=== PATIENT | male | born 1995 | race Two or more races ===

== ENCOUNTER 2018-07-10 13:36 | Inpatient (IN) | payer OTHER ==
[2018-07-10 14:31] VITALS: BMI 23.5
--- NOTE | 2018-07-10 15:25 | HP ---
COWS - Scale Resting Pulse: 1= MD 81-100 Sweatin= Chills/Flushing Restless Observation: 1= Difficult to Sit Still Pupil Size: 2= Moderately Dilated Bone or Joint Aches: 2= Severe Diffuse Aches Runny Nose/ Eye Tearin= Nasal Congestion GI Upset > 30mins: 3= Vomiting/Diarrhea Tremor Observation: 1= Tremor [place], Not Seen Yawning Observation: 0= None Anxiety or Irritability: 4=Extreme Anxiety Goose Flesh Skin: 0=Smooth Skin COWS Score: 16 CIWA Score - Admission Criteria OASAS Guidelines: Admission for Medically Managed Detox: Requires at least one of the followin. CIWA greater than 12 2. Seizures within the past 24 hours 3. Delirium tremens within the past 24 hours 4. Hallucinations within the past 24 hours 5. Acute intervention needed for co occurring medical disorder 6. Acute intervention needed for co occurring psychiatric disorder 7. Severe withdrawal that cannot be handled at a lower level of care (continued vomiting, continued diarrhea, abnormal vital signs) requiring intravenous medication and/or fluids 8. Admission ROS [facility] - [facility] Chief Complaint: " my family told me to come to detox" Allergies/Adverse Reactions: Allergies Allergy/AdvReac Type Severity Reaction Status Date / Time No Known Allergies Allergy Verified 07/10/18 14:22 History of Present Illness: 23 yo male with hx of nicotine and heroin (nasal) dependence is here seeking detox d/t withdrawal symptoms, reports first time seeking treatment for NANCY. Patient report three year hx of heroin use, using 8-9 bags per day, last use two days ago. Denies medical and psych hx. Denies hx of seizures, overdose or blackouts. Patient is interested in attending rehab upon completing detox. Exam Limitations: No Limitations - Ebola screening Have you traveled outside of the country in the last 21 days: No Have you had contact with anyone from an Ebola affected area: No Do you have a fever: No - Review of Systems Constitutional: Chills, Diaphoresis, Loss of Appetite, Changes in sleep, Unintentional Wgt. Loss EENT: reports: Nose Congestion Respiratory: reports: No Symptoms reported Cardiac: reports: No Symptoms Reported GI: reports: Diarrhea, Nausea, Poor Appetite, Poor Fluid Intake, Vomiting, Abdominal cramping : reports: No Symptoms Reported Musculoskeletal: reports: Back Pain, Joint Pain Integumentary: reports: No Symptoms Reported Neuro: reports: Headache (01/01) Endocrine: reports: Excessive Sweating, Increased Thirst Hematology: reports: No Symptoms Reported Psychiatric: reports: Orientated x3, Anxious Other Systems: Reviewed and Negative Patient History - Patient Medical History Hx Anemia: No Hx Asthma: No Hx Chronic Obstructive Pulmonary Disease (COPD): No Hx Cancer: No Hx Cardiac Disorders: No Hx Congestive Heart Failure: No Hx Hypertension: No Hx Hypercholesterolemia: No Hx Pacemaker: No HX Cerebrovascular Accident: No Hx Seizures: No Hx Dementia: No Hx Diabetes: No Hx Gastrointestinal Disorders: No Hx Liver Disease: No Hx Genitourinary Disorders: No Hx Sexually Transmitted Disorders: No Hx Renal Disease (ESRD): No Hx Thyroid Disease: No Hx Human Immunodeficiency Virus (HIV): No Hx Hepatitis C: No Hx Depression: No Hx Suicide Attempt: No Hx Bipolar Disorder: No Hx Schizophrenia: No - Patient Surgical History Past Surgical History: No - PPD History Previous Implant?: No Documented Results: Negative w/o proof PPD to be Administered?: No - Smoking Cessation Smoking history: Current every day smoker Have you smoked in the past 12 months: Yes Aproximately how many cigarettes per day: 20 Hx Chewing Tobacco Use: No Initiated information on smoking cessation: Yes 'Breaking Loose' booklet given: 07/10/18 - Substance & Tx. History Hx Alcohol Use: No Hx Substance Use: Yes Substance Use Type: Heroin Hx Substance Use Treatment: No - Substances abused Heroin Substance route: Inhalation Frequency: Daily Amount used: $100 (8-9 bags) Age of first use: 20 Date of last use: 07/08/18 Family Disease History - Family Disease History Family History: Denies Admission Physical Exam [facility] - Vital Signs Vital Signs: Vital Signs - 24 hr 07/10/18 14:25 Temperature 99.8 F H Pulse Rate 93 H Respiratory 18 Rate Blood Pressure 120/80 - Physical General Appearance: Yes: Appropriately Dressed, Moderate Distress, Thin, Sweating, Anxious HEENTM: Yes: EOMI, Hearing grossly Normal, Normal ENT Inspection, Normocephalic , Normal Voice, MARGARET (pupils =6mm bl), Pharynx Normal, Other Respiratory: Yes: Chest Non-Tender, Lungs Clear, Normal Breath Sounds, No Respiratory Distress, No Accessory Muscle Use Neck: Yes: Within Normal Limits Breast: Yes: Breast Exam Deferred Cardiology: Yes: Regular Rhythm, Regular Rate Abdominal: Yes: Normal Bowel Sounds, Non Tender, Flat, Soft Genitourinary: Yes: Within Normal Limits Back: Yes: Normal Inspection Musculoskeletal: Yes: full range of Motion, Gait Steady, Pelvis Stable, Back pain Extremities: Yes: Normal Capillary Refill, Normal Inspection, Normal Range of Motion, Non-Tender Neurological: Yes: dba II-XII NML intact, Fully Oriented, Alert, Motor Strength 5/5, Depressed Affect Integumentary: Yes: Normal Color, Warm, Diaphoresis Lymphatic: Yes: Within Normal Limits - Diagnostic (1) Opioid dependence with withdrawal Current Visit: Yes Status: Acute (2) Nicotine dependence Current Visit: Yes Status: Acute Qualifiers: Nicotine product type: cigarettes (3) Nausea and vomiting Current Visit: Yes Status: Acute Qualifiers: Vomiting Intractability: unspecified Cleared for Admission S - Detox or Rehab [facility] Level of Care: Medically Managed Detox Regimen/Protocol: Methadone Breathalyzer - Breathalyzer Breathalyzer: 0 Urine Drug Screen - Test Device Lot number: [id number] Expiration date: 06/22/19 - Control Is test valid?: Yes - Results Drug screen NEGATIVE: No Urine drug screen results: MOP-Opiates Inpatient Rehab Admission - Rehab Decision to Admit Inpatient rehab admission?: No
[2018-07-10] MEDS ORDERED: MAG HYDROX/AL HYDROX/SIMETH 30 ML UNIT-DOSE CUP PO PRN (15:28)
[2018-07-10] MEDS ORDERED: MAGNESIUM CITRATE 300 ML BOTTLE PO PRN (15:28)
[2018-07-10] MEDS ORDERED: MELATONIN 5 MG TABLETS PO PRN (15:28)
[2018-07-10] MEDS ORDERED: IBUPROFEN 400 MG TABLET (FP) PO PRN (15:28)
[2018-07-10] MEDS ORDERED: METHOCARBAMOL 500 MG TABLET PO PRN (15:28)
[2018-07-10] MEDS ORDERED: MENTHOL/PHENOL 1 EACH UD MM PRN (15:28)
[2018-07-10] MEDS ORDERED: NICOTINE POLACRILEX 2 MG GUM BUC PRN (15:28)
[2018-07-10] MEDS ORDERED: BISMUTH SUBSALICYLATE 524 MG/30 ML UD PO PRN (15:28)
[2018-07-10] MEDS ORDERED: ACETAMINOPHEN 325 MG TABLET (FP) PO PRN ×2 (15:28)
[2018-07-10] MEDS ORDERED: ONDANSETRON *ODT* 4 MG TABLET SL PRN (15:28)
[2018-07-10] MEDS ORDERED: MAGNESIUM HYDROX 2400MG/30ML ORAL SUSPENSION 30 ML CUP PO PRN (15:28)
[2018-07-10] MEDS ORDERED: cloNIDine HCL 0.1 MG TABLET PO PRN (15:35)
[2018-07-10] MEDS ORDERED: METHADONE HCL 10 MG TABLET (FOR DETOX USE ONLY) PO ONE ×2 (16:30→23:00)
[2018-07-10] MEDS: DICYCLOMINE HCL 10 MG CAPSULE PO PRN (17:07)
[2018-07-10 20:19] LABS: EPI CELLS 1.3 /HPF (0-5/HPF); PH,URINE 6.5 (5.0-8.0); URINE APPEARANCE CLEAR; URINE BACTERIA 4.6 /hpf (NEGATIVE); URINE BILIRUBIN NEGATIVE (NEGATIVE); URINE CASTS 6 /lpf (0-8); URINE COLOR DK YELLOW; URINE GLUCOSE (UA) NEGATIVE (NEGATIVE); URINE KETONE 2+ (NEGATIVE); URINE LEUK ESTERASE TRACE (NEGATIVE); URINE NITRITE NEGATIVE (NEGATIVE); URINE PROTEIN TRACE (NEGATIVE); URINE RBC 2 /hpf (0-4); URINE WBC 5 /hpf (0-5)
[2018-07-10] MEDS: THIAMINE HCL 100 MG TABLET (FP) PO SCH (22:27)
[2018-07-11] MEDS: DICYCLOMINE HCL 10 MG CAPSULE PO PRN (07:38)
[2018-07-11] MEDS ORDERED: METHADONE HCL 10 MG TABLET (FOR DETOX USE ONLY) PO ONE ×2 (10:00→10:45)
[2018-07-11] MEDS: PRENATAL VITAMINS W/ FOLIC ACID TABLET (FP) PO SCH (10:24)
[2018-07-11] MEDS: NICOTINE 21 MG/24 HOURS TOPICAL PATCH TD SCH (10:25)
[2018-07-11] MEDS ORDERED: cloNIDine HCL 0.1 MG TABLET PO PRN (10:28)
[2018-07-11] MEDS ORDERED: METHADONE HCL 10 MG TABLET PO ONE (10:29)
[2018-07-11] MEDS ORDERED: hydrOXYzine PAMOATE 50 MG CAPSULE (FP) PO PRN (10:30)
--- NOTE | 2018-07-11 10:33 | PN ---
S COWS - Scale Resting Pulse: 2= [place] 101-120 Sweatin= Chills/Flushing Restless Observation: 1= Difficult to Sit Still Pupil Size: 1= Pupils >than Normal Bone or Joint Aches: 2= Severe Diffuse Aches Runny Nose/ Eye Tearin= Nasal Congestion GI Upset > 30mins: 3= Vomiting/Diarrhea Tremor Observation of Outstretched Hands: 1= Tremor [place], Not Seen Yawning Observation: 2= >3x During Session Anxiety or Irritability: 1=Feels Anxious/Irritable Goose Flesh Skin: 3=Piloerection COWS Score: 18 [facility] Progress Note (SOAP) Subjective: pt with nausea, vomiting, diarrhea, day #2 of admission. high COWS score O: Vital Signs - 24 hr 07/10/18 07/10/18 07/10/18 14:25 18:11 21:35 Temperature 99.8 F H 99.1 F 99.0 F Pulse Rate 93 H 106 H 81 Respiratory 18 18 16 Rate Blood Pressure 120/80 129/86 109/63 07/11/18 07/11/18 07/11/18 00:30 03:30 06:11 Temperature 97.1 F L Pulse Rate 79 Respiratory 18 18 16 Rate Blood Pressure 112/72 07/11/18 07/11/18 06:30 09:27 Temperature 98.6 F Pulse Rate 89 Respiratory 18 18 Rate Blood Pressure 116/81 Laboratory Tests 07/10/18 17:00 Urine Color Dk yellow Urine Appearance Clear Urine pH 6.5 Ur Specific [place] 1.032 Urine Protein Trace Urine Glucose (UA) Negative Urine Ketones 2+ H Urine Blood Negative Urine Nitrite Negative Urine Bilirubin Negative Urine Urobilinogen 1.0 Ur Leukocyte Esterase Trace Urine WBC (Auto) 5 Urine RBC (Auto) 2 Urine Casts (Auto) 6 U Epithel Cells (Auto) 1.3 Urine Bacteria (Auto) 4.6 a/p Heroin use- detox protocol, pt still in withdrawal- rec'd only 20mg of methadone since admission will give additional dose of methadone, prn valium, clonidine and vistaril pt to start methadone program at discharge- d/w pt and counselor
[2018-07-11] MEDS: diazePAM 5 MG TABLET PO PRN (10:55)
[2018-07-11 11:02] LABS: ALBUMIN 4.1 g/dl (3.4-5.0); ALK PHOS 65 U/L (45-117); ANION GAP 6 MMOL/L (8-16); BILIRUBIN,TOTAL 0.5 mg/dL (0.2-1); BLOOD UREA NITROGEN 13 mg/dL (7-18); CALCIUM 9.5 mg/dL (8.5-10.1); CHLORIDE 105 mmol/L (98-107); CO2 29 mmol/L (21-32); CREATININE 0.9 mg/dL (0.55-1.3); GLUCOSE,RANDOM 92 mg/dL (74-106); POTASSIUM 3.7 mmol/L (3.5-5.1); SGOT/AST 18 U/L (15-37); SGPT/ALT 23 U/L (13-61); SODIUM 140 mmol/L (136-145); TOT PROT 7.4 g/dl (6.4-8.2)
[2018-07-11 11:05] LABS: HEMATOCRIT 45.6 % (35.4-49); HEMOGLOBIN 15.2 GM/dL (11.7-16.9); MCH 29.5 pg (25.7-33.7); MCHC 33.4 g/dl (32.0-35.9); MEAN CELL VOLUME 88.3 fl (80-96); MEAN PLT VOLUME 9.2 fl (7.5-11.1); PLATELET COUNT 225 K/MM3 (134-434); RBC 5.16 M/mm3 (4.00-5.60); RDW 13.9 % (11.9-15.9); WHITE BLOOD COUNT 6.4 K/mm3 (4.0-10.0)
[2018-07-11] MEDS ORDERED: RANITIDINE HCL 150 MG TABLET (FP) PO ONE (14:55)
[2018-07-11] MEDS: THIAMINE HCL 100 MG TABLET (FP) PO SCH (22:23)
[2018-07-12] MEDS: NICOTINE 21 MG/24 HOURS TOPICAL PATCH TD SCH (09:38)
[2018-07-12] MEDS: diazePAM 5 MG TABLET PO PRN ×2 (09:39→22:34)
[2018-07-12] MEDS: PRENATAL VITAMINS W/ FOLIC ACID TABLET (FP) PO SCH (09:39)
[2018-07-12] MEDS ORDERED: METHADONE HCL 5 MG TABLET (FOR DETOX USE ONLY) PO ONE (10:00)
[2018-07-12] MEDS ORDERED: METHADONE HCL 10 MG TABLET (FOR DETOX USE ONLY) PO ONE (10:00)
--- NOTE | 2018-07-12 14:29 | EKG ---
Test Reason : Blood Pressure : / mmHG Vent. Rate : 100 BPM Atrial Rate : 100 BPM P-R Int : 132 ms QRS Dur : 086 ms QT Int : 346 ms P-R-T Axes : 066 084 054 degrees QTc Int : 446 ms NORMAL SINUS RHYTHM NORMAL ECG NO PREVIOUS ECGS AVAILABLE Confirmed by MD ARDEN, JANA ([id number]) on 07/12/2018 2:29:11 PM Referred By: Confirmed By:JANA HER MD
--- NOTE | 2018-07-12 15:33 | PN ---
BHS COWS - Scale Resting Pulse: 0= [place] 80 or Below Sweatin= Chills/Flushing Restless Observation: 0= Sits Still Pupil Size: 0= Normal to Room Light Bone or Joint Aches: 2= Severe Diffuse Aches Runny Nose/ Eye Tearin= None GI Upset > 30mins: 2= Nausea/Diarrhea Tremor Observation of Outstretched Hands: 0= None Yawning Observation: 1= 1-2x During Session Anxiety or Irritability: 2=Irritable/Anxious Goose Flesh Skin: 3=Piloerection COWS Score: 11 [facility] Progress Note (SOAP) Subjective: Nausea, Diarrhea, Anxious, Body Aches. Objective: PATIENT A & O X 3, OBSERVED AMBULATING ON UNIT UNASSISTED. IN NO ACUTE DISTRESS. 07/12/18 15:34 Vital Signs Temperature 98.1 F 07/12/18 13:16 Pulse Rate 78 07/12/18 13:16 Respiratory Rate 18 07/12/18 13:16 Blood Pressure 96/67 07/12/18 13:16 O2 Sat by Pulse Oximetry (%) Laboratory Tests 07/10/18 07/11/18 07/11/18 17:00 07:00 07:00 WBC 6.4 RBC 5.16 Hgb 15.2 Hct 45.6 MCV 88.3 MCH 29.5 MCHC 33.4 RDW 13.9 Plt Count 225 MPV 9.2 Sodium 140 Potassium 3.7 Chloride 105 Carbon Dioxide 29 Anion Gap 6 L BUN 13 Creatinine 0.9 Creat Clearance w eGFR 104.57 Random Glucose 92 Calcium 9.5 Total Bilirubin 0.5 AST 18 ALT 23 Alkaline Phosphatase 65 Total Protein 7.4 Albumin 4.1 Urine Color Dk yellow Urine Appearance Clear Urine pH 6.5 Ur Specific [place] 1.032 Urine Protein Trace Urine Glucose (UA) Negative Urine Ketones 2+ H Urine Blood Negative Urine Nitrite Negative Urine Bilirubin Negative Urine Urobilinogen 1.0 Ur Leukocyte Esterase Trace Urine WBC (Auto) 5 Urine RBC (Auto) 2 Urine Casts (Auto) 6 U Epithel Cells (Auto) 1.3 Urine Bacteria (Auto) 4.6 RPR Titer HIV 1&2 Antibody Screen HIV P24 Antigen 07/11/18 07/11/18 07:00 07:00 WBC RBC Hgb Hct MCV MCH MCHC RDW Plt Count MPV Sodium Potassium Chloride Carbon Dioxide Anion Gap BUN Creatinine Creat Clearance w eGFR Random Glucose Calcium Total Bilirubin AST ALT Alkaline Phosphatase Total Protein Albumin Urine Color Urine Appearance Urine pH Ur Specific [place] Urine Protein Urine Glucose (UA) Urine Ketones Urine Blood Urine Nitrite Urine Bilirubin Urine Urobilinogen Ur Leukocyte Esterase Urine WBC (Auto) Urine RBC (Auto) Urine Casts (Auto) U Epithel Cells (Auto) Urine Bacteria (Auto) RPR Titer Nonreactive HIV 1&2 Antibody Screen Negative HIV P24 Antigen Negative LABS NOTED. Assessment: 07/12/18 15:35 WITHDRAWAL SYMPTOMS. Plan: CONTINUE DETOX. INCREASE DAILY PO FLUID / WATER INTAKE.
[2018-07-12] MEDS: THIAMINE HCL 100 MG TABLET (FP) PO SCH (22:34)
[2018-07-13] MEDS ORDERED: METHADONE HCL 10 MG TABLET (FOR DETOX USE ONLY) PO ONE (10:00)
[2018-07-13] MEDS: diazePAM 5 MG TABLET PO PRN (10:15)
[2018-07-13] MEDS: PRENATAL VITAMINS W/ FOLIC ACID TABLET (FP) PO SCH (10:15)
[2018-07-13] MEDS: NICOTINE 21 MG/24 HOURS TOPICAL PATCH TD SCH (10:16)
--- NOTE | 2018-07-13 14:17 | PN ---
BHS COWS - Scale Resting Pulse: 0= MD 80 or Below Sweatin= Chills/Flushing Restless Observation: 1= Difficult to Sit Still Pupil Size: 0= Normal to Room Light Bone or Joint Aches: 1= Mild Discomfort Runny Nose/ Eye Tearin= Nasal Congestion GI Upset > 30mins: 1= Stomach Cramp Tremor Observation of Outstretched Hands: 1= Tremor [place], Not Seen Yawning Observation: 1= 1-2x During Session Anxiety or Irritability: 1=Feels Anxious/Irritable Goose Flesh Skin: 0=Smooth Skin COWS Score: 8 B[facility] Progress Note (SOAP) Subjective: feeling better social with peers in day room Objective: 07/13/18 15:38 Vital Signs Temperature 97.1 F L 07/13/18 13:22 Pulse Rate 76 07/13/18 13:22 Respiratory Rate 18 07/13/18 13:22 Blood Pressure 128/71 07/13/18 13:22 O2 Sat by Pulse Oximetry (%) Laboratory Last Values WBC 6.4 K/mm3 (4.0-10.0) 07/11/18 07:00 RBC 5.16 M/mm3 (4.00-5.60) 07/11/18 07:00 Hgb 15.2 GM/dL (11.7-16.9) 07/11/18 07:00 Hct 45.6 % (35.4-49) 07/11/18 07:00 MCV 88.3 fl (80-96) 07/11/18 07:00 MCH 29.5 pg (25.7-33.7) 07/11/18 07:00 MCHC 33.4 g/dl (32.0-35.9) 07/11/18 07:00 RDW 13.9 % (11.9-15.9) 07/11/18 07:00 Plt Count 225 K/MM3 (134-434) 07/11/18 07:00 MPV 9.2 fl (7.5-11.1) 07/11/18 07:00 Sodium 140 mmol/L (136-145) 07/11/18 07:00 Potassium 3.7 mmol/L (3.5-5.1) 07/11/18 07:00 Chloride 105 mmol/L (98-107) 07/11/18 07:00 Carbon Dioxide 29 mmol/L (21-32) 07/11/18 07:00 Anion Gap 6 MMOL/L (8-16) L 07/11/18 07:00 BUN 13 mg/dL (7-18) 07/11/18 07:00 Creatinine 0.9 mg/dL (0.55-1.3) 07/11/18 07:00 Creat Clearance w eGFR 104.57 (>60) 07/11/18 07:00 Random Glucose 92 mg/dL (74-106) 07/11/18 07:00 Calcium 9.5 mg/dL (8.5-10.1) 07/11/18 07:00 Total Bilirubin 0.5 mg/dL (0.2-1) 07/11/18 07:00 AST 18 U/L (15-37) 07/11/18 07:00 ALT 23 U/L (13-61) 07/11/18 07:00 Alkaline Phosphatase 65 U/L (45-117) 07/11/18 07:00 Total Protein 7.4 g/dl (6.4-8.2) 07/11/18 07:00 Albumin 4.1 g/dl (3.4-5.0) 07/11/18 07:00 Urine Color Dk yellow 07/10/18 17:00 Urine Appearance Clear 07/10/18 17:00 Urine pH 6.5 (5.0-8.0) 07/10/18 17:00 Ur Specific [place] 1.032 (1.010-1.035) 07/10/18 17:00 Urine Protein Trace (NEGATIVE) 07/10/18 17:00 Urine Glucose (UA) Negative (NEGATIVE) 07/10/18 17:00 Urine Ketones 2+ (NEGATIVE) H 07/10/18 17:00 Urine Blood Negative (NEGATIVE) 07/10/18 17:00 Urine Nitrite Negative (NEGATIVE) 07/10/18 17:00 Urine Bilirubin Negative (NEGATIVE) 07/10/18 17:00 Urine Urobilinogen 1.0 mg/dL (0.2-1.0) 07/10/18 17:00 Ur Leukocyte Esterase Trace (NEGATIVE) 07/10/18 17:00 Urine WBC (Auto) 5 /hpf (0-5) 07/10/18 17:00 Urine RBC (Auto) 2 /hpf (0-4) 07/10/18 17:00 Urine Casts (Auto) 6 /lpf (0-8) 07/10/18 17:00 U Epithel Cells (Auto) 1.3 /HPF (0-5/HPF) 07/10/18 17:00 Urine Bacteria (Auto) 4.6 /hpf (NEGATIVE) 07/10/18 17:00 RPR Titer Nonreactive (NONREACTIVE) 07/11/18 07:00 HIV 1&2 Antibody Screen Negative 07/11/18 07:00 HIV P24 Antigen Negative 07/11/18 07:00 lab noted Assessment: 07/13/18 15:39 mild withdralwal sx Plan: continue detox
[2018-07-13 17:31] VITALS: BP 126/82; PULSE 87; TEMP 98.8
--- NOTE | 2018-07-13 19:21 | DS ---
[facility] Detox Discharge Summary Admission Date: 07/10/18 Discharge Date: 07/13/18 - History Present History: Opioid Dependence Additional Comments: Patient admitted w/ opioid withdrawal symptoms. Pertinent Past History: Patient states came to detox because family insisted. Denies significant PMH. - Physical Exam Results Vital Signs: Vital Signs Temperature 98.8 F 07/13/18 17:31 Pulse Rate 87 07/13/18 17:31 Respiratory Rate 16 07/13/18 17:31 Blood Pressure 126/82 07/13/18 17:31 O2 Sat by Pulse Oximetry (%) Pertinent Admission Physical Exam Findings: Admitted with opiate withdrawal for admission to detox. Laboratory Last Values WBC 6.4 K/mm3 (4.0-10.0) 07/11/18 07:00 RBC 5.16 M/mm3 (4.00-5.60) 07/11/18 07:00 Hgb 15.2 GM/dL (11.7-16.9) 07/11/18 07:00 Hct 45.6 % (35.4-49) 07/11/18 07:00 MCV 88.3 fl (80-96) 07/11/18 07:00 MCH 29.5 pg (25.7-33.7) 07/11/18 07:00 MCHC 33.4 g/dl (32.0-35.9) 07/11/18 07:00 RDW 13.9 % (11.9-15.9) 07/11/18 07:00 Plt Count 225 K/MM3 (134-434) 07/11/18 07:00 MPV 9.2 fl (7.5-11.1) 07/11/18 07:00 Sodium 140 mmol/L (136-145) 07/11/18 07:00 Potassium 3.7 mmol/L (3.5-5.1) 07/11/18 07:00 Chloride 105 mmol/L (98-107) 07/11/18 07:00 Carbon Dioxide 29 mmol/L (21-32) 07/11/18 07:00 Anion Gap 6 MMOL/L (8-16) L 07/11/18 07:00 BUN 13 mg/dL (7-18) 07/11/18 07:00 Creatinine 0.9 mg/dL (0.55-1.3) 07/11/18 07:00 Creat Clearance w eGFR 104.57 (>60) 07/11/18 07:00 Random Glucose 92 mg/dL (74-106) 07/11/18 07:00 Calcium 9.5 mg/dL (8.5-10.1) 07/11/18 07:00 Total Bilirubin 0.5 mg/dL (0.2-1) 07/11/18 07:00 AST 18 U/L (15-37) 07/11/18 07:00 ALT 23 U/L (13-61) 07/11/18 07:00 Alkaline Phosphatase 65 U/L (45-117) 07/11/18 07:00 Total Protein 7.4 g/dl (6.4-8.2) 07/11/18 07:00 Albumin 4.1 g/dl (3.4-5.0) 07/11/18 07:00 Urine Color Dk yellow 07/10/18 17:00 Urine Appearance Clear 07/10/18 17:00 Urine pH 6.5 (5.0-8.0) 07/10/18 17:00 Ur Specific [place] 1.032 (1.010-1.035) 07/10/18 17:00 Urine Protein Trace (NEGATIVE) 07/10/18 17:00 Urine Glucose (UA) Negative (NEGATIVE) 07/10/18 17:00 Urine Ketones 2+ (NEGATIVE) H 07/10/18 17:00 Urine Blood Negative (NEGATIVE) 07/10/18 17:00 Urine Nitrite Negative (NEGATIVE) 07/10/18 17:00 Urine Bilirubin Negative (NEGATIVE) 07/10/18 17:00 Urine Urobilinogen 1.0 mg/dL (0.2-1.0) 07/10/18 17:00 Ur Leukocyte Esterase Trace (NEGATIVE) 07/10/18 17:00 Urine WBC (Auto) 5 /hpf (0-5) 07/10/18 17:00 Urine RBC (Auto) 2 /hpf (0-4) 07/10/18 17:00 Urine Casts (Auto) 6 /lpf (0-8) 07/10/18 17:00 U Epithel Cells (Auto) 1.3 /HPF (0-5/HPF) 07/10/18 17:00 Urine Bacteria (Auto) 4.6 /hpf (NEGATIVE) 07/10/18 17:00 RPR Titer Nonreactive (NONREACTIVE) 07/11/18 07:00 HIV 1&2 Antibody Screen Negative 07/11/18 07:00 HIV P24 Antigen Negative 07/11/18 07:00 Labs reviewed. - Treatment Hospital Course: Detox Protocol Followed (Patient was doing well on detox protocol and was scheduled for discharge in a.m. Patient left unit without waiting for provider or offer of Narcan kit.) - Medication Discharge Medications: Ambulatory Orders NK [No Known Home Medication] 07/10/18 - Diagnosis (1) Nicotine dependence Current Visit: Yes Status: Acute Qualifiers: Nicotine product type: cigarettes (2) Opioid dependence with withdrawal Current Visit: Yes Status: Acute - AMA Did Patient Leave Against Medical Advice: Yes (Did not wait to speak with Provider)
[2018-07-14] MEDS ORDERED: METHADONE HCL 5 MG TABLET (FOR DETOX USE ONLY) PO ONE (06:00)
== END 2018-07-13 18:30 | disposition home or self-care (01) | DRG 773 ==
LOC: YASAS 13:36 → Y3N 15:54
PROVIDERS: ADMIT Surgery; ATTEND Surgery
PROC: HZ2ZZZZ Detoxification Services for Substance Abuse Treatment (ICD-10-PCS; principal; 2018-07-10)
DX: F11.23 Opioid dependence with withdrawal (principal); F17.210 Nicotine dependence, cigarettes, uncomplicated; R11.2 Nausea with vomiting, unspecified
CPT/HCPCS: 36415; 80053; 81003; 85027; 86593; 87389; 93005; 93010; J0735; Q0162

== ENCOUNTER 2018-09-26 16:05 | Inpatient (IN) | payer OTHER ==
[2018-09-26 17:20] VITALS: BMI 23.3
[2018-09-26] MEDS ORDERED: METHOCARBAMOL 500 MG TABLET PO PRN (19:12)
[2018-09-26] MEDS ORDERED: MENTHOL/PHENOL 1 EACH UD MM PRN (19:12)
[2018-09-26] MEDS ORDERED: hydrOXYzine PAMOATE 25 MG CAPSULE (FP) PO PRN (19:12)
[2018-09-26] MEDS ORDERED: MAG HYDROX/AL HYDROX/SIMETH 30 ML UNIT-DOSE CUP PO PRN (19:12)
[2018-09-26] MEDS ORDERED: MELATONIN 5 MG TABLETS PO PRN (19:12)
[2018-09-26] MEDS ORDERED: ACETAMINOPHEN 325 MG TABLET (FP) PO PRN ×2 (19:12)
[2018-09-26] MEDS ORDERED: MAGNESIUM CITRATE 300 ML BOTTLE PO PRN (19:12)
[2018-09-26] MEDS ORDERED: cloNIDine HCL 0.1 MG TABLET PO PRN (19:12)
[2018-09-26] MEDS ORDERED: MAGNESIUM HYDROX 2400MG/30ML ORAL SUSPENSION 30 ML CUP PO PRN (19:12)
[2018-09-26] MEDS ORDERED: BISMUTH SUBSALICYLATE 524 MG/30 ML UD PO PRN (19:12)
[2018-09-26] MEDS ORDERED: IBUPROFEN 400 MG TABLET (FP) PO PRN (19:12)
[2018-09-26] MEDS ORDERED: METHADONE HCL 10 MG TABLET (FOR DETOX USE ONLY) PO ONE (19:12)
--- NOTE | 2018-09-26 19:12 | HP ---
COWS - Scale Resting Pulse: 0= [place] 80 or Below Sweatin= Chills/Flushing Restless Observation: 1= Difficult to Sit Still Pupil Size: 2= Moderately Dilated Bone or Joint Aches: 2= Severe Diffuse Aches Runny Nose/ Eye Tearin= Runny Nose/Eyes GI Upset > 30mins: 2= Nausea/Diarrhea Tremor Observation: 1= Tremor [place], Not Seen Yawning Observation: 0= None Anxiety or Irritability: 2=Irritable/Anxious Goose Flesh Skin: 0=Smooth Skin COWS Score: 13 CIWA Score - Admission Criteria OASAS Guidelines: Admission for Medically Managed Detox: Requires at least one of the followin. CIWA greater than 12 2. Seizures within the past 24 hours 3. Delirium tremens within the past 24 hours 4. Hallucinations within the past 24 hours 5. Acute intervention needed for co occurring medical disorder 6. Acute intervention needed for co occurring psychiatric disorder 7. Severe withdrawal that cannot be handled at a lower level of care (continued vomiting, continued diarrhea, abnormal vital signs) requiring intravenous medication and/or fluids 8. Admission ROS S - HPI Chief Complaint: i want things to be different Allergies/Adverse Reactions: Allergies Allergy/AdvReac Type Severity Reaction Status Date / Time No Known Allergies Allergy Verified 09/26/18 17:12 History of Present Illness: began using heroin 3 y ago began using oral opiates few motnhs later progressed to heroin always inhaled no injection previously 15 bags, now 10 bags daily aside from detox no other tx - Ebola screening Have you traveled outside of the country in the last 21 days: No Have you had contact with anyone from an Ebola affected area: No - Review of Systems Constitutional: Loss of Appetite, Weight Stable EENT: reports: No Symptoms Reported Respiratory: reports: No Symptoms reported Cardiac: reports: No Symptoms Reported GI: reports: Poor Appetite, Abdominal cramping : reports: No Symptoms Reported Musculoskeletal: reports: Joint Pain Integumentary: reports: No Symptoms Reported Neuro: reports: No Symptoms reported Endocrine: reports: No Symptoms Reported Hematology: reports: No Symptoms Reported Psychiatric: reports: Mood/Affect Appropiate, Anxious Patient History - Patient Medical History Hx Anemia: No Hx Asthma: No Hx Chronic Obstructive Pulmonary Disease (COPD): No Hx Cancer: No Hx Cardiac Disorders: No Hx Congestive Heart Failure: No Hx Hypertension: No Hx Hypercholesterolemia: No Hx Pacemaker: No HX Cerebrovascular Accident: No Hx Seizures: No Hx Dementia: No Hx Diabetes: No Hx Gastrointestinal Disorders: No Hx Liver Disease: No Hx Genitourinary Disorders: No Hx Sexually Transmitted Disorders: No Hx Renal Disease (ESRD): No Hx Thyroid Disease: No Hx Human Immunodeficiency Virus (HIV): No Hx Hepatitis C: No Hx Depression: No Hx Suicide Attempt: No Hx Bipolar Disorder: No Hx Schizophrenia: No - Patient Surgical History Past Surgical History: No - PPD History Date: 07/12/18 - Smoking Cessation Smoking history: Current every day smoker Have you smoked in the past 12 months: Yes Aproximately how many cigarettes per day: 20 Hx Chewing Tobacco Use: No Initiated information on smoking cessation: Yes 'Breaking Loose' booklet given: 09/26/18 - Substances abused Heroin Substance route: Inhalation Frequency: Daily Amount used: $100 (8-9 bags) Age of first use: 20 Date of last use: 09/26/18 Cocaine Substance route: Inhalation Frequency: 1-2 times per week Amount used: 20 dollars Age of first use: 14 Date of last use: 09/26/18 Family Disease History - Family Disease History Family Disease History: Other: Grandparent (etoh) Admission Physical Exam [facility] - Vital Signs Vital Signs: Vital Signs - 24 hr 09/26/18 17:11 Temperature 97.8 F Pulse Rate 77 Respiratory 20 Rate Blood Pressure 112/68 - Physical General Appearance: Yes: Mild Distress HEENTM: Yes: EOMI, Other (pupils enlarged) Respiratory: Yes: Within Normal Limits Neck: Yes: Within Normal Limits Breast: Yes: Breast Exam Deferred Cardiology: Yes: Within Normal Limits Abdominal: Yes: Increased Bowel Sounds Genitourinary: Yes: Within Normal Limits Back: Yes: Within Normal Limits Musculoskeletal: Yes: Within Normal Limits Extremities: Yes: Within Normal Limits Neurological: Yes: Within Normal Limits, pickle processor II-XII NML intact, Fully Oriented, Alert, Motor Strength 5/5, Normal Response Integumentary: Yes: Within Normal Limits Lymphatic: Yes: Within Normal Limits - Diagnostic (1) Opioid dependence with withdrawal Current Visit: No Status: Acute Cleared for Admission S - Detox or Rehab [facility] Level of Care: Medically Supervised Breathalyzer - Breathalyzer Breathalyzer: 0 Urine Drug Screen - Test Device Lot number: [id number] Expiration date: 06/22/19 - Control Is test valid?: Yes - Results Drug screen NEGATIVE: No Urine drug screen results: MOP-Opiates Inpatient Rehab Admission - Rehab Decision to Admit Inpatient rehab admission?: No
[2018-09-26] MEDS: THIAMINE HCL 100 MG TABLET (FP) PO SCH (23:24)
[2018-09-27] MEDS ORDERED: METHADONE HCL 5 MG TABLET (FOR DETOX USE ONLY) PO ONE (10:00)
[2018-09-27] MEDS: PRENATAL VITAMINS W/ FOLIC ACID TABLET (FP) PO SCH (10:53)
--- NOTE | 2018-09-27 12:39 | PN ---
BHS COWS - Scale Resting Pulse: 1= [place] 81-100 Sweatin= Chills/Flushing Restless Observation: 1= Difficult to Sit Still Pupil Size: 0= Normal to Room Light Bone or Joint Aches: 2= Severe Diffuse Aches Runny Nose/ Eye Tearin= None GI Upset > 30mins: 0= None Tremor Observation of Outstretched Hands: 2= Slight Tremor Visible Yawning Observation: 1= 1-2x During Session Anxiety or Irritability: 2=Irritable/Anxious Goose Flesh Skin: 3=Piloerection COWS Score: 13 BHS Progress Note (SOAP) Subjective: Chills, Hot / Cold Sensations, Anxious, Tremors. Objective: PATIENT A & O X 2 (UNCERTAIN ABOUT CURRENT DAY / DATE). PATIENT OBSERVED AMBULATING ON UNIT UNASSISTED. IN NO ACUTE DISTRESS. 09/27/18 12:59 Vital Signs Temperature 98.5 F 09/27/18 09:05 Pulse Rate 86 09/27/18 09:05 Respiratory Rate 18 09/27/18 09:05 Blood Pressure 131/76 09/27/18 09:05 O2 Sat by Pulse Oximetry (%) PATIENT REFUSED TO HAVE ADMISSION LABS DRAWN. 09/27/18 12:59 Assessment: 09/27/18 13:00 WITHDRAWAL SYMPTOMS. Plan: CONTINUE DETOX. INCREASE DAILY PO WATER INTAKE.
[2018-09-27] MEDS: THIAMINE HCL 100 MG TABLET (FP) PO SCH (23:06)
[2018-09-28 09:34] VITALS: TEMP 98.5
[2018-09-28] MEDS ORDERED: METHADONE HCL 10 MG TABLET (FOR DETOX USE ONLY) PO ONE (10:00)
[2018-09-28] MEDS: PRENATAL VITAMINS W/ FOLIC ACID TABLET (FP) PO SCH (10:01)
--- NOTE | 2018-09-28 11:18 | PN ---
BHS COWS - Scale Resting Pulse: 0= [place] 80 or Below Sweatin= Chills/Flushing Restless Observation: 0= Sits Still Pupil Size: 0= Normal to Room Light Bone or Joint Aches: 1= Mild Discomfort Runny Nose/ Eye Tearin= Nasal Congestion GI Upset > 30mins: 1= Stomach Cramp Tremor Observation of Outstretched Hands: 1= Tremor [place], Not Seen Yawning Observation: 2= >3x During Session Anxiety or Irritability: 1=Feels Anxious/Irritable Goose Flesh Skin: 0=Smooth Skin COWS Score: 8 BHS Progress Note (SOAP) Subjective: feeling better today less body aches tolerate food and fluid well mild anxiousness Objective: 09/28/18 11:19 Vital Signs Temperature 98.5 F 09/28/18 09:33 Pulse Rate 80 09/28/18 09:33 Respiratory Rate 19 09/28/18 09:33 Blood Pressure 117/78 09/28/18 09:33 O2 Sat by Pulse Oximetry (%) 09/28/18 11:21 lab see 06/2018 Assessment: 09/28/18 11:21 mild opiate withdrawal sx Plan: continue opiate detox
[2018-09-28 14:31] VITALS: BP 113/78; PULSE 89
--- NOTE | 2018-09-28 15:09 | DS ---
[facility] Detox Discharge Summary Admission Date: 09/26/18 Discharge Date: 09/28/18 - History Present History: Opioid Dependence Additional Comments: 23 years old male admitted on 09/26/18 for opiate withdrawal stabilization after lunch and napping feeling better prefers to begin rehab journey today alert no acute distress denies suicidal ideation discuss medication assisted treatment program patient agrees to consider - Physical Exam Results Vital Signs: Vital Signs Temperature 98.5 F 09/28/18 14:31 Pulse Rate 89 09/28/18 14:31 Respiratory Rate 18 09/28/18 14:31 Blood Pressure 113/78 09/28/18 14:31 O2 Sat by Pulse Oximetry (%) Pertinent Admission Physical Exam Findings: lab see 06/2018 - Treatment Hospital Course: Detox Protocol Followed, Detoxed Safely, Responded well, Discharged Condition Good, Rehab Referral Accepted Patient has Accepted a Rehab Referral to: community support approach - Medication Discharge Medications: Ambulatory Orders NK [No Known Home Medication] 07/10/18 - Diagnosis (1) Nicotine dependence Current Visit: Yes Status: Acute Qualifiers: Nicotine product type: cigarettes Substance use status: in withdrawal Qualified Code(s): F17.213 - Nicotine dependence, cigarettes, with withdrawal (2) Opioid dependence with withdrawal Current Visit: Yes Status: Acute - AMA Did Patient Leave Against Medical Advice: No
[2018-09-29] MEDS ORDERED: METHADONE HCL 5 MG TABLET (FOR DETOX USE ONLY) PO ONE (06:00)
== END 2018-09-28 15:45 | disposition home or self-care (01) | DRG 773 ==
LOC: YASAS 16:05 → Y3N 19:54
PROVIDERS: ADMIT Surgery; ATTEND Surgery
PROC: HZ2ZZZZ Detoxification Services for Substance Abuse Treatment (ICD-10-PCS; principal; 2018-09-26)
DX: F11.23 Opioid dependence with withdrawal (principal); F14.10 Cocaine abuse, uncomplicated; F17.210 Nicotine dependence, cigarettes, uncomplicated

== ENCOUNTER 2018-11-10 11:40 | Inpatient (IN) | payer OTHER ==
[2018-11-10 15:17] VITALS: BMI 21.0
--- NOTE | 2018-11-10 17:40 | PN ---
Teaching Attending Note Name of Resident: Pooja Wing ATTENDING PHYSICIAN STATEMENT I saw and evaluated the patient. I reviewed the resident's note and discussed the case with the resident. I agree with the resident's findings and plan as documented. SUBJECTIVE: 23 yo with h/o OUD, uses 10 bags/heroin sniffing, last use 2 days, no h/o OD, several times in detox, last time left here 09/28. pt with OBJECTIVE: Vital Signs - 24 hr 11/10/18 15:14 Temperature 99.8 F H Pulse Rate 81 Respiratory 18 Rate Blood Pressure 133/84 tremulous alert and oriented ASSESSMENT AND PLAN: OUD- start heroin detox with methadone. 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
[2018-11-10] MEDS ORDERED: MELATONIN 5 MG TABLETS PO PRN (17:45)
[2018-11-10] MEDS ORDERED: NICOTINE POLACRILEX 2 MG GUM BUC PRN (17:45)
[2018-11-10] MEDS ORDERED: MENTHOL/PHENOL 1 EACH UD MM PRN (17:45)
[2018-11-10] MEDS ORDERED: MAGNESIUM HYDROX 2400MG/30ML ORAL SUSPENSION 30 ML CUP PO PRN (17:45)
[2018-11-10] MEDS ORDERED: MAG HYDROX/AL HYDROX/SIMETH 30 ML UNIT-DOSE CUP PO PRN (17:45)
[2018-11-10] MEDS ORDERED: cloNIDine HCL 0.1 MG TABLET PO PRN (17:45)
[2018-11-10] MEDS ORDERED: BISMUTH SUBSALICYLATE 524 MG/30 ML UD PO PRN (17:45)
[2018-11-10] MEDS ORDERED: IBUPROFEN 400 MG TABLET (FP) PO PRN (17:45)
[2018-11-10] MEDS ORDERED: ACETAMINOPHEN 325 MG TABLET (FP) PO PRN ×2 (17:45)
[2018-11-10] MEDS ORDERED: MAGNESIUM CITRATE 300 ML BOTTLE PO PRN (17:45)
--- NOTE | 2018-11-10 17:57 | HP ---
COWS - Scale Resting Pulse: 0= SC 80 or Below Sweatin=Flushed/Facial Moisture Restless Observation: 1= Difficult to Sit Still Pupil Size: 1= Pupils >than Normal Bone or Joint Aches: 2= Severe Diffuse Aches Runny Nose/ Eye Tearin= Nasal Congestion GI Upset > 30mins: 5=Frequent Vomit/Diarrhea Tremor Observation: 2= Slight Tremor Visible Yawning Observation: 0= None Anxiety or Irritability: 2=Irritable/Anxious Goose Flesh Skin: 3=Piloerection COWS Score: 19 CIWA Score - Admission Criteria [facility] Guidelines: Admission for Medically Managed Detox: Requires at least one of the followin. CIWA greater than 12 2. Seizures within the past 24 hours 3. Delirium tremens within the past 24 hours 4. Hallucinations within the past 24 hours 5. Acute intervention needed for co occurring medical disorder 6. Acute intervention needed for co occurring psychiatric disorder 7. Severe withdrawal that cannot be handled at a lower level of care (continued vomiting, continued diarrhea, abnormal vital signs) requiring intravenous medication and/or fluids 8. Admission [facility] Chief Complaint: detox from heroin Allergies/Adverse Reactions: Allergies Allergy/AdvReac Type Severity Reaction Status Date / Time No Known Allergies Allergy Verified 11/10/18 15:13 History of Present Illness: Mr. Hines is a 23yo male with heroin use disorder, cocaine use disorder, and marijuana use disorder who presents for detox from heroin. He reports smoking and sniffing 10 bags/day since the age of 20. His last use was 2 days ago. He denies hx of OD. His last detox was in September and pt stayed for 3 days and was prepared to leave for rehab. Pt also sniffs cocaine 1-2 times/week and began at age 14. Pt also smokes marijuana 3-4x day for "years" and reports quit 3 weeks ago. Pt also smokes 1/2 ppd since age 14. Pt reports anxiety, chills, sweating, n/v, abdominal pain, GOVEA, back pain, and tremors. Pt denies dizziness, chest pain, SOB, body aches. PMH: none surgical hx: none meds: none NKDA denies family hx - Ebola screening Have you traveled outside of the country in the last 21 days: No Have you had contact with anyone from an Ebola affected area: No - Review of Systems Constitutional: Chills, Diaphoresis, Malaise Respiratory: denies: Shortness of Breath Cardiac: denies: Chest Pain GI: reports: Nausea, Vomiting. denies: Diarrhea : reports: No Symptoms Reported Musculoskeletal: reports: Back Pain Integumentary: reports: No Symptoms Reported Neuro: reports: Headache. denies: Dizziness Endocrine: reports: No Symptoms Reported Hematology: reports: No Symptoms Reported Psychiatric: reports: Judgement Intact, Mood/Affect Appropiate, Orientated x3 Patient History - Patient Medical History Hx Anemia: No Hx Asthma: No Hx Chronic Obstructive Pulmonary Disease (COPD): No Hx Cancer: No Hx Cardiac Disorders: No Hx Congestive Heart Failure: No Hx Hypertension: No Hx Hypercholesterolemia: No Hx Pacemaker: No HX Cerebrovascular Accident: No Hx Seizures: No Hx Dementia: No Hx Diabetes: No Hx Gastrointestinal Disorders: Yes (h/o GERD) Hx Liver Disease: No Hx Genitourinary Disorders: No Hx Sexually Transmitted Disorders: Yes (Gonnorrhea 2014) Hx Renal Disease (ESRD): No Hx Thyroid Disease: No Hx Human Immunodeficiency Virus (HIV): No Hx Hepatitis C: No Hx Depression: Yes Hx Suicide Attempt: No Hx Bipolar Disorder: No Hx Schizophrenia: No - Patient Surgical History Past Surgical History: No - PPD History Date: 07/12/18 - Smoking Cessation Smoking history: Current every day smoker Have you smoked in the past 12 months: Yes Aproximately how many cigarettes per day: 20 Hx Chewing Tobacco Use: No Initiated information on smoking cessation: Yes 'Breaking Loose' booklet given: 11/10/18 - Substances abused Heroin Substance route: Inhalation Frequency: Daily Amount used: 10bags Age of first use: 20 Date of last use: 11/08/18 Cocaine Substance route: Inhalation Frequency: 1-2 times per week Amount used: $10 Age of first use: 14 Date of last use: 11/09/18 Family Disease History - Family Disease History Family Disease History: Other: Grandparent (etoh) Admission Physical Exam [facility] - Vital Signs Vital Signs: Vital Signs - 24 hr 11/10/18 15:14 Temperature 99.8 F H Pulse Rate 81 Respiratory 18 Rate Blood Pressure 133/84 - Physical General Appearance: Yes: Anxious, Other (somnolent) HEENTM: Yes: Normocephalic, MARGARET Respiratory: Yes: Lungs Clear, Normal Breath Sounds Neck: Yes: Within Normal Limits Cardiology: Yes: Regular Rhythm, Regular Rate Abdominal: Yes: Normal Bowel Sounds, Non Tender Back: Yes: Normal Inspection Musculoskeletal: Yes: full range of Motion Extremities: Yes: Normal Range of Motion Neurological: Yes: cpc II-XII NML intact, Fully Oriented, Motor Strength 5/5, Normal Mood/Affect, Other (somnolent) Integumentary: Yes: Within Normal Limits - Diagnostic (1) Cocaine use disorder Current Visit: Yes Status: Chronic (2) Cannabis use disorder, mild, abuse Current Visit: Yes Status: Chronic (3) Opioid dependence with withdrawal Current Visit: Yes Status: Chronic Cleared for Admission S - Detox or Rehab [facility] Level of Care: Medically Managed Breathalyzer - Breathalyzer Breathalyzer: 0 Urine Drug Screen - Test Device Lot number: [id number] Expiration date: 08/22/20 - Control Is test valid?: Yes - Results Drug screen NEGATIVE: No Urine drug screen results: THC-Marijuana, MEIR-Cocaine, FEN-Fentanyl, MOP-Opiates Inpatient Rehab Admission - Rehab Decision to Admit Inpatient rehab admission?: No
[2018-11-10] MEDS ORDERED: METHADONE HCL 10 MG TABLET (FOR DETOX USE ONLY) PO ONE (18:15)
[2018-11-10] MEDS: hydrOXYzine PAMOATE 25 MG CAPSULE (FP) PO PRN (18:48)
[2018-11-10] MEDS: THIAMINE HCL 100 MG TABLET (FP) PO SCH (22:30)
[2018-11-10] MEDS: METHOCARBAMOL 500 MG TABLET PO PRN (22:31)
[2018-11-10] MEDS: ONDANSETRON *ODT* 4 MG TABLET SL PRN (22:32)
[2018-11-11] MEDS ORDERED: METHADONE HCL 10 MG TABLET (FOR DETOX USE ONLY) ONE (09:08)
[2018-11-11] MEDS ORDERED: METHADONE HCL 5 MG TABLET (FOR DETOX USE ONLY) ONE (09:08)
[2018-11-11] MEDS ORDERED: METHADONE (DETOX) 20 MG, METHADONE (DETOX) 5 MG PO ONE (10:00)
[2018-11-11] MEDS: METHOCARBAMOL 500 MG TABLET PO PRN ×2 (10:13→17:51)
[2018-11-11] MEDS: PRENATAL VITAMINS W/ FOLIC ACID TABLET (FP) PO SCH (10:13)
[2018-11-11] MEDS: hydrOXYzine PAMOATE 25 MG CAPSULE (FP) PO PRN ×2 (10:14→17:51)
[2018-11-11] MEDS: ONDANSETRON *ODT* 4 MG TABLET SL PRN (10:14)
[2018-11-11] MEDS ORDERED: diazePAM 5 MG TABLET PO PRN (15:04)
--- NOTE | 2018-11-11 15:09 | PN ---
[facility] COWS - Scale Resting Pulse: 0= NM 80 or Below Sweatin= Chills/Flushing Restless Observation: 1= Difficult to Sit Still Pupil Size: 1= Pupils >than Normal Bone or Joint Aches: 2= Severe Diffuse Aches Runny Nose/ Eye Tearin= Runny Nose/Eyes GI Upset > 30mins: 2= Nausea/Diarrhea Tremor Observation of Outstretched Hands: 2= Slight Tremor Visible Yawning Observation: 1= 1-2x During Session Anxiety or Irritability: 2=Irritable/Anxious Goose Flesh Skin: 0=Smooth Skin COWS Score: 14 [facility] Progress Note (SOAP) Subjective: alert,irritable,anxious,interrupted sleep,tremor,pain in the body and back Objective: 11/11/18 15:07 Vital Signs Temperature 97 F L 11/11/18 13:00 Pulse Rate 69 11/11/18 13:00 Respiratory Rate 18 11/11/18 13:00 Blood Pressure 114/72 11/11/18 13:00 O2 Sat by Pulse Oximetry (%) lbs pending Assessment: 11/11/18 15:08 withdrawal symptom Plan: continue detox,methadone regimen,will add valium 10 mgs po q 4hrs prn for severe withdrawal
--- NOTE | 2018-11-11 17:41 | DS ---
[facility] Detox Discharge Summary Admission Date: 11/10/18 Discharge Date: 11/11/18 - History Pertinent Past History: PT SEEN BY COUNSELING AND ENAMEL PULVERIZER AND DECIDES HE DESIRES AMA DEPARTURE - Physical Exam Results Vital Signs: Vital Signs Temperature 97 F L 11/11/18 13:00 Pulse Rate 69 11/11/18 13:00 Respiratory Rate 18 11/11/18 13:00 Blood Pressure 114/72 11/11/18 13:00 O2 Sat by Pulse Oximetry (%) Pertinent Admission Physical Exam Findings: DESIRES AMA DEPARTURE - Treatment Hospital Course: Detox Protocol Followed - Medication Discharge Medications: Ambulatory Orders NK [No Known Home Medication] 07/10/18 - AMA Did Patient Leave Against Medical Advice: Yes
[2018-11-11] MEDS: THIAMINE HCL 100 MG TABLET (FP) PO SCH (22:23)
[2018-11-12 09:06] VITALS: BP 105/66; PULSE 65; TEMP 96.8
[2018-11-12] MEDS ORDERED: METHADONE HCL 10 MG TABLET (FOR DETOX USE ONLY) PO ONE (10:00)
[2018-11-12] MEDS: PRENATAL VITAMINS W/ FOLIC ACID TABLET (FP) PO SCH (10:18)
--- NOTE | 2018-11-12 16:19 | DS ---
[facility] Detox Discharge Summary Admission Date: 11/10/18 Discharge Date: 11/12/18 - History Present History: Opioid Dependence Additional Comments: 23 years old male admitted on 11/10/18 for opiate withdrawal sx management insists to leave the detox unit without apparent reason patient is alert oriented x 3 steady gait speech clearly coherently nurse, counselor, and provider meet with the patient that the patient demands to leave "someone waiting" - Physical Exam Results Vital Signs: Vital Signs Temperature 96.8 F L 11/12/18 09:05 Pulse Rate 65 11/12/18 09:05 Respiratory Rate 18 11/12/18 09:05 Blood Pressure 105/66 11/12/18 09:05 O2 Sat by Pulse Oximetry (%) Pertinent Admission Physical Exam Findings: opiate withdrawal sx patient refuses lab - Treatment Hospital Course: Detox Protocol Followed, Responded well Patient has Accepted a Rehab Referral to: [facility] - Medication Discharge Medications: Ambulatory Orders NK [No Known Home Medication] 07/10/18 - Diagnosis (1) Nicotine dependence Status: Acute Qualifiers: Nicotine product type: cigarettes Substance use status: in withdrawal Qualified Code(s): F17.213 - Nicotine dependence, cigarettes, with withdrawal (2) Opioid dependence with withdrawal Status: Acute - AMA Did Patient Leave Against Medical Advice: Yes
[2018-11-13] MEDS ORDERED: METHADONE (DETOX) 10 MG, METHADONE (DETOX) 5 MG PO ONE (10:00)
[2018-11-14] MEDS ORDERED: METHADONE HCL 10 MG TABLET (FOR DETOX USE ONLY) PO ONE (10:00)
[2018-11-15] MEDS ORDERED: METHADONE HCL 5 MG TABLET (FOR DETOX USE ONLY) PO ONE (06:00)
== END 2018-11-12 09:44 | disposition left against medical advice (07) | DRG 770 ==
LOC: YASAS 11:40 → Y3N 17:57
PROVIDERS: ADMIT Surgery; ATTEND Surgery
PROC: HZ2ZZZZ Detoxification Services for Substance Abuse Treatment (ICD-10-PCS; principal; 2018-11-10)
DX: F11.23 Opioid dependence with withdrawal (principal); F14.20 Cocaine dependence, uncomplicated; F12.10 Cannabis abuse, uncomplicated; F17.213 Nicotine dependence, cigarettes, with withdrawal; K21.9 Gastro-esophageal reflux disease without esophagitis; Z87.438 Personal history of other diseases of male genital organs
CPT/HCPCS: Q0162